=== PATIENT | female | born 1970 | race Hispanic/Latino ===

== ENCOUNTER 2019-03-04 00:59 | Observation (INO) | payer SELFPAY ==
[2019-03-04] MEDS ORDERED: LEVALBUTEROL 1.25 MG/3 ML NEB ONE ×2 (01:37→02:04)
[2019-03-04 02:28] LABS: Absolute Lymphocytes (CBC) 2.2 K/uL (0.7-4.9); Basophils % 0.3 % (0-1.3); Hematocrit 37.3 % (36.0-45.0); Lymphocytes % 42.1 % (15.3-44.8); MPV 8.6 fL (7.6-11.3); RBC Red Blood Cell Count 5.03 M/uL (3.86-4.86)
[2019-03-04 02:31] LABS: Protime INR 0.91
[2019-03-04 02:43] LABS: BUN Blood Urea Nitrogen 11 mg/dL (7-18); Bicarbonate 24 mmol/L (21-32); Glucose Level 101 mg/dL (74-106); NT PRO-BNP 176 pg/mL (<125); Potassium 3.5 mmol/L (3.5-5.1); Sodium Level 143 mmol/L (136-145); Troponin (Emerg Dept Use Only) < 0.02 ng/mL (0.0-0.045)
[2019-03-04] MEDS ORDERED: MORPHINE 4 MG/ML SYR ONE (04:40)
--- NOTE | 2019-03-04 05:06 | EDPHYS ---
Physician Documentation [facility] Name: Danita Sanchez Age: 49 yrs Sex: Female : 1970 Arrival Date: 03/04/2019 Time: 01:13 Bed 7 Private MD: ED Physician Thor Friedman HPI: 03/04 01:34 This 49 yrs old Female presents to ER via Ambulatory with complaints of Cough. rn 01:34 The patient or guardian reports cough, difficulty breathing. Onset: The rn symptoms/episode began/occurred 30 minute(s) ago. Severity of symptoms: At their worst the symptoms were moderate, in the emergency department the symptoms have improved. Modifying factors: The symptoms are alleviated by nothing, the symptoms are aggravated by nothing. The patient has experienced a previous episode. The patient has not recently seen a physician. 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 - Social history:: Smoking status: Patient/guardian denies using tobacco. - Ebola Screening: : No symptoms or risks identified at this time. - Family history:: not pertinent. - Hospitalizations: : No recent hospitalization is reported. ROS: 01:34 Constitutional: Negative for fever, chills, and weight loss, Eyes: Negative for injury, rn pain, redness, and discharge, Neck: Negative for injury, pain, and swelling, Cardiovascular: Negative for chest pain, palpitations, + peripheral edema Respiratory: Negative for pleuritic chest pain, Abdomen/GI: Negative for abdominal pain, nausea, vomiting, diarrhea, and constipation, MS/Extremity: Negative for injury and deformity, Skin: Negative for injury, rash, and discoloration, Neuro: Negative for headache, weakness, numbness, tingling, and seizure. Exam: 01:34 Constitutional: This is a well developed, well nourished patient who is awake, alert, rn + moderate resp distress Head/Face: Normocephalic, atraumatic. Eyes: Pupils equal round and reactive to light, extra-ocular motions intact. Lids and lashes normal. Conjunctiva and sclera are non-icteric and not injected. Cornea within normal limits. Periorbital areas with no swelling, redness, or edema. ENT: No oral trauma or swelling, no stridor Cardiovascular: Tachycardic, regular Respiratory: + moderate tachypnea with diffuse exp wheezing and diminished at bases. Abdomen/GI: soft, non-tender MS/ Extremity: Pulses equal, no cyanosis. Neurovascular intact. Full, normal range of motion. Equal circumference. 1+ non-pitting edema bilateral lower ext Neuro: Awake and alert, GCS 15, oriented to person, place, time, and situation. Cranial nerves II-XII grossly intact. Motor strength 5/5 in all extremities. Sensory grossly intact. Cerebellar exam normal. Vital Signs: 01:24 BP 162 / 90; Pulse 116; Resp 22 S; Temp 98.1(O); Pulse Ox 96% on R/A; Weight 81.65 kg bb (R); Height 5 ft. 3 in. (160.02 cm) (R); Pain 0/10; 02:58 BP 138 / 79; Pulse 112; Resp 20; Temp 98; Pulse Ox 99% ; rr5 04:00 BP 141 / 70; Pulse 115; Resp 18; Pulse Ox 98% on R/A; rr5 04:47 BP 135 / 70; Pulse 107; Resp 19; Pulse Ox 98% ; Pain 7/10; rr5 06:00 BP 131 / 83; Pulse 89; Resp 18; Pulse Ox 99% ; rr5 08:09 BP 134 / 65; Pulse 109; Resp 18; Pulse Ox 98% on R/A; tw2 01:24 Body Mass Index 31.89 (81.65 kg, 160.02 cm) bb MDM: 01:27 Patient medically screened. rn 04:54 Differential Diagnosis: Bronchitis Upper Respiratory Infection Viral Syndrome rn Pneumonia. Data reviewed: vital signs, nurses notes, lab test result(s), EKG, radiologic studies, CT scan, plain films, and as a result, I will admit patient. Counseling: I had a detailed discussion with the patient and/or guardian regarding: the historical points, exam findings, and any diagnostic results supporting the discharge/admit diagnosis, lab results, radiology results, the need for further work-up and treatment in the hospital. Response to treatment: the patient's symptoms have mildly improved after treatment, and as a result, I will admit patient. Admission orders: after a detailed discussion of the patient's condition and case, the admit orders are written by me. ED course: Pt with improvement after breathing treaments, CT neg for PE. Shows possible pneumonia/alveolitis/pulmonary edema. Still complaint of pain and sob. Tachypnea improving. Will admit to Dr. Garcia for further care. . 03/04 01:33 Order name: Blood Culture Adult (2) rn 03/04 01:33 Order name: BMP rn 03/04 01:33 Order name: CBC with Diff rn 03/04 01:33 Order name: D-Dimer rn 03/04 01:33 Order name: NT PRO-BNP rn 03/04 01:33 Order name: PT-INR rn 03/04 01:33 Order name: Ptt, Activated rn 03/04 01:33 Order name: Troponin (emerg Dept Use Only) rn 03/04 03:05 Order name: CBC with Automated Diff; Complete Time: 04:36 EDMS 03/04 03:05 Order name: Protime (+INR); Complete Time: 04:36 EDMS 03/04 03:05 Order name: PTT, Activated Partial Thromb; Complete Time: 04:36 EDMS 03/04 03:05 Order name: Basic Metabolic Panel; Complete Time: 04:36 EDMS 03/04 03:05 Order name: Troponin (Emerg Dept Use Only); Complete Time: 04:36 EDMS 03/04 03:05 Order name: NT PRO-BNP; Complete Time: 04:36 EDMS 03/04 01:33 Order name: IV Start; Complete Time: 01:40 rn 03/04 01:33 Order name: XRAY CXR (1 view) rn 03/04 01:33 Order name: EKG; Complete Time: 01:36 rn 03/04 01:33 Order name: Cardiac monitoring; Complete Time: 01:40 rn 03/04 01:33 Order name: EKG - Nurse/Tech; Complete Time: 01:40 rn 03/04 01:33 Order name: Labs collected and sent; Complete Time: 01:40 rn 03/04 01:33 Order name: O2 Per Protocol; Complete Time: :40 rn 03/04 01:59 Order name: CT Chest For PE Angio rn 03/04 08:16 Order name: Procalcitonin EDNV 03/04 10:39 Order name: Basic Metabolic Panel EDNV 03/04 10:39 Order name: Magnesium EDNV 03/04 11:52 Order name: RAD EDNV 03/04 01:33 Order name: O2 Sat Monitoring; Complete Time: 01:40 rn Administered Medications: 01:40 Drug: Xopenex 1.25 mg Route: Inhalation; rr5 02:40 Follow up: Response: No adverse reaction rr5 02:10 Drug: Xopenex 1.25 mg Route: Inhalation; tl1 04:40 Drug: morphine 4 mg {Note: rass 0 .} Route: IVP; Site: right antecubital; rr5 05:40 Follow up: Response: No adverse reaction; RASS: Alert and Calm (0) rr5 05:25 Drug: LevaQUIN 500 mg Volume: 100 ml; Route: IVPB; Infused Over: 60 mins; Site: right rr5 antecubital; 06:20 Follow up: Response: No adverse reaction; IV Status: Completed infusion; IV Intake: rr5 100ml Disposition: 03/04/19 05:05 Hospitalization ordered by Juancho Garcia for Inpatient Admission. Preliminary diagnosis are Dyspnea, unspecified, Hemoptysis, Pneumonitis. - Bed requested for Telemetry/MedSurg (Inpatient). - Status is Inpatient Admission. sg - Condition is Stable. - Problem is new. - Symptoms have improved. UTI on Admission? No Signatures: Dispatcher [employer] [facility] Angelina Lakhani RN RN mw Gay, Steven, RN RN sg Awilda Britt RN RN bb Nieto, Roman, MD MD rn Lasagna, Tonya, RN RN tl1 Sherley Everett Raymond RN RN rr5 Corrections: (The following items were deleted from the chart) 06:07 05:05 Hospitalization Ordered by Juancho Garcia MD for Inpatient Admission. Preliminary diagnosis is Dyspnea, unspecified; Hemoptysis; Pneumonitis. Bed requested for Telemetry/MedSurg (Inpatient). Status is Inpatient Admission. Condition is Stable. Problem is new. Symptoms have improved. UTI on Admission? No. rn 13:23 06:07 03/04/2019 05:05 Hospitalization Ordered by Juancho Garcia MD for Inpatient eb Admission. Preliminary diagnosis is Dyspnea, unspecified; Hemoptysis; Pneumonitis. Bed requested for [facility] ER HOLD. Status is Inpatient Admission. Condition is Stable. Problem is new. Symptoms have improved. UTI on Admission? No. mw 14:11 13:23 03/04/2019 05:05 Hospitalization Ordered by Juancho Garcia MD for Inpatient eb Admission. Preliminary diagnosis is Dyspnea, unspecified; Hemoptysis; Pneumonitis. Bed requested for Telemetry/MedSurg (Inpatient). Status is Inpatient Admission. Condition is Stable. Problem is new. Symptoms have improved. UTI on Admission? No. eb 14:14 14:11 03/04/2019 05:05 Hospitalization Ordered by Juancho Garcia MD for Inpatient sg Admission. Preliminary diagnosis is Dyspnea, unspecified; Hemoptysis; Pneumonitis. Bed requested for Telemetry/MedSurg (Inpatient). Status is Inpatient Admission. Condition is Stable. Problem is new. Symptoms have improved. UTI on Admission? No. eb
--- NOTE | 2019-03-04 05:06 | ER ---
Nurse's Notes [facility] Name: Danita Sanchez Age: 49 yrs Sex: Female : 1970 Arrival Date: 03/04/2019 Time: 01:13 Bed 7 Private MD: Diagnosis: Dyspnea, unspecified;Hemoptysis;Pneumonitis Presentation: 03/04 01:21 Presenting complaint: Patient states: she started having difficulty breathing and bb coughing up blood approx 30 mins ago had similar symptoms in the past and was told she had fluid on her lungs. Transition of care: patient was not received from another setting of care. Onset of symptoms was March 04, 2019. Risk Assessment: Do you want to hurt yourself or someone else? Patient reports no desire to harm self or others. Initial Sepsis Screen: Does the patient meet any 2 criteria? RR > 20 per min. HR > 90 bpm. Yes Does the patient have a suspected source of infection? Yes: Productive cough/pneumonia. Care prior to arrival: None. 01:21 Method Of Arrival: Ambulatory bb 01:21 Acuity: DAYANNA 2 bb 01:21 Initial Sepsis Screen: If YES to both, name of provider notified: Thor Friedman MD. 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 - Social history:: Smoking status: Patient/guardian denies using tobacco. - Ebola Screening: : No symptoms or risks identified at this time. - Family history:: not pertinent. - Hospitalizations: : No recent hospitalization is reported. Screenin:25 Abuse screen: Denies threats or abuse. Denies injuries from another. Nutritional rr5 screening: No deficits noted. Tuberculosis screening: No symptoms or risk factors identified. Fall Risk IV access (20 points). Total Yu Fall Scale indicates No Risk (0-24 pts). Assessment: 01:21 General: Appears in no apparent distress. uncomfortable, Behavior is calm, cooperative, rr5 appropriate for age. 01:21 Pain: Denies pain. Neuro: Level of Consciousness is awake, alert, obeys commands, rr5 Oriented to person, place, time, situation, Appropriate for age. Cardiovascular: Capillary refill < 3 seconds Patient's skin is warm and dry. Respiratory: Reports cough that is with blood Airway is patent Respiratory effort is even, unlabored, Respiratory pattern is regular, symmetrical, tachypnea Breath sounds with wheezes. GI: No signs and/or symptoms were reported involving the gastrointestinal system. : No signs and/or symptoms were reported regarding the genitourinary system. EENT: No signs and/or symptoms were reported regarding the EENT system. Derm: Skin is intact, Skin is pink, warm \T\ dry. Musculoskeletal: Circulation, motion, and sensation intact. Capillary refill < 3 seconds. 02:10 Reassessment: Patient appears in no apparent distress at this time. Patient and/or rr5 family updated on plan of care and expected duration. Pain level reassessed. Patient is alert, oriented x 3, equal unlabored respirations, skin warm/dry/pink. patient verbalized i feel much better after breathing treatment. Patient states feeling better. Patient states symptoms have improved. Respiratory: Airway is patent Respiratory effort is even, unlabored, Respiratory pattern is regular, symmetrical. 03:00 Reassessment: Patient appears in no apparent distress at this time. Patient is alert, rr5 oriented x 3, equal unlabored respirations, skin warm/dry/pink. awaiting for results. Patient states feeling better. Patient states symptoms have improved. 04:05 Reassessment: Patient appears in no apparent distress at this time. Patient and/or rr5 family updated on plan of care and expected duration. Pain level reassessed. Patient is alert, oriented x 3, equal unlabored respirations, skin warm/dry/pink. came back from CT scan. 2 nd set of blood culture extracted. Patient states feeling better. Patient states symptoms have improved. 04:30 Reassessment: Patient appears in no apparent distress at this time. complaining of back rr5 and abdominal pain, pain score 7/10. ED provider aware with order made and carried out. 05:00 Reassessment: Patient appears in no apparent distress at this time. Patient is alert, rr5 oriented x 3, equal unlabored respirations, skin warm/dry/pink. reassessment done by ED provider advised admission and agreed for the plan of care. Patient states feeling better. Patient states symptoms have improved. 06:18 Reassessment: Patient appears in no apparent distress at this time. Patient and/or rr5 family updated on plan of care and expected duration. Pain level reassessed. Patient is alert, oriented x 3, equal unlabored respirations, skin warm/dry/pink. dr. wu at bedside examining the patient. 07:10 Reassessment: Patient appears in no apparent distress at this time. Patient and/or tw2 family updated on plan of care and expected duration. Pain level reassessed. Patient is alert, oriented x 3, equal unlabored respirations, skin warm/dry/pink. 08:09 Reassessment: Patient appears in no apparent distress at this time. Patient and/or tw2 family updated on plan of care and expected duration. Pain level reassessed. Patient is alert, oriented x 3, equal unlabored respirations, skin warm/dry/pink. Patient states feeling better. Patient states symptoms have improved. Vital Signs: 01:24 BP 162 / 90; Pulse 116; Resp 22 S; Temp 98.1(O); Pulse Ox 96% on R/A; Weight 81.65 kg bb (R); Height 5 ft. 3 in. (160.02 cm) (R); Pain 0/10; 02:58 BP 138 / 79; Pulse 112; Resp 20; Temp 98; Pulse Ox 99% ; rr5 04:00 BP 141 / 70; Pulse 115; Resp 18; Pulse Ox 98% on R/A; rr5 04:47 BP 135 / 70; Pulse 107; Resp 19; Pulse Ox 98% ; Pain 7/10; rr5 06:00 BP 131 / 83; Pulse 89; Resp 18; Pulse Ox 99% ; rr5 08:09 BP 134 / 65; Pulse 109; Resp 18; Pulse Ox 98% on R/A; tw2 01:24 Body Mass Index 31.89 (81.65 kg, 160.02 cm) ED Course: 01:13 Patient arrived in ED. cf2 01:23 Triage completed. bb 01:24 Arm band placed on Patient placed in an exam room, on a stretcher, on pulse oximetry. bb Family accompanied patient. 01:24 Patient has correct armband on for positive identification. Placed in gown. Bed in low rr5 position. Call light in reach. Side rails up X2. Pulse ox on. NIBP on. 01:27 Thor Friedman MD is Attending Physician. rn 01:28 Emil De Oliveira, JAIMEE is Primary Nurse. rr5 01:35 Inserted saline lock: 20 gauge in right antecubital area, using aseptic technique. rr5 Blood collected. 01:41 EKG done, by ED staff. lt1 01:41 Initial Neb Treatment Given as ordered Patient was instructed and evaluated on rr5 procedure. 01:46 X-ray completed. Portable x-ray completed in exam room. Patient tolerated procedure kw well. 02:14 Subsequent Neb Treatment Given as ordered Patient was reinforced on procedure Patient rr5 tolerated procedure well without adverse effect. 03:06 First set of blood cultures drawn by me. lt1 05:04 Juancho Wu MD is Hospitalizing Provider. rn 06:18 No provider procedures requiring assistance completed. Patient admitted, IV remains in rr5 place. intact, No redness/swelling at site. 07:05 Initial lab(s) drawn, by me, sent to lab. phosphorus. rr5 07:19 Primary Nurse role handed off by Emil De Oliveira, RN tw2 07:19 Sruthi Blandon, JAIMEE is Primary Nurse. tw2 13:00 Diet: Patient given a regular meal tray. ms Administered Medications: 01:40 Drug: Xopenex 1.25 mg Route: Inhalation; rr5 02:40 Follow up: Response: No adverse reaction rr5 02:10 Drug: Xopenex 1.25 mg Route: Inhalation; tl1 04:40 Drug: morphine 4 mg {Note: rass 0 .} Route: IVP; Site: right antecubital; rr5 05:40 Follow up: Response: No adverse reaction; RASS: Alert and Calm (0) rr5 05:25 Drug: LevaQUIN 500 mg Volume: 100 ml; Route: IVPB; Infused Over: 60 mins; Site: right rr5 antecubital; 06:20 Follow up: Response: No adverse reaction; IV Status: Completed infusion; IV Intake: rr5 100ml Intake: 06:20 IV: 100ml; Total: 100ml. rr5 Outcome: 05:05 Decision to Hospitalize by Provider. rn 07:06 Condition: stable rr5 07:06 Instructed on the need for admit. 08:09 Admitted to ER Hold. Please see [facility] for further documentation. tw2 14:14 Patient left the ED. sg Signatures: Prudencio Nelson, RN RN Awilda Flores RN RN Danielle Singleton ms, Roman, MD MD rn Whitley, Kimberlee kw Lasagna, Tonya, RN RN tl1 Sruthi Blandon RN RN tw2 Emil De Oliveira RN RN rr5 Rafaela Nolan 1 Symone Rodas cf2 Corrections: (The following items were deleted from the chart) 01:23 01:21 Initial Sepsis Screen: Does the patient meet any 2 criteria? No. Patient's bb initial sepsis screen is negative. Does the patient have a suspected source of infection? No. Patient's initial sepsis screen is negative. bb 08:10 07:06 Admitted to ER Hold. Please see [facility] for further documentation. rr5 tw2
[2019-03-04] MEDS ORDERED: Levofloxacin500mg IV 500 MG/100 ML BAG IV ONE (05:18)
[2019-03-04] MEDS ORDERED: ONDANSETRON 4 MG/2 ML VIAL IV PRN (05:56)
[2019-03-04] MEDS ORDERED: ACETAMINOPHEN 500 MG TAB PO PRN (05:56)
[2019-03-04] MEDS: NA CHLORIDE 0.9% 1,000 ML IV SCH ×2 (06:00→16:41)
[2019-03-04] MEDS: Levofloxacin500mg IV 500 MG/100 ML BAG IV SCH (06:00)
[2019-03-04] MEDS ORDERED: NA CHLORIDE 0.9% 1,000 ML ONE (06:52)
[2019-03-04] MEDS ORDERED: ALBUTEROL 2.5 MG/3 ML NEB SOL ONE ×2 (07:36→13:33)
[2019-03-04] MEDS: IPRATROPIUM BROM 0.5MG/2.5ML NEB SCH ×3 (07:36→20:00)
[2019-03-04] MEDS: ALBUTEROL 2.5 MG/3 ML NEB SOL NEB SCH ×3 (07:36→20:00)
[2019-03-04] MEDS ORDERED: IPRATROPIUM BROM 0.5MG/2.5ML ONE ×2 (07:36→13:33)
[2019-03-04 08:35] VITALS: BMI 31.8
[2019-03-04] MEDS: HYDROCORTISONE SUC 100 MG INJ IV SCH ×2 (09:00→22:13)
[2019-03-04] MEDS ORDERED: ENOXAPARIN 40 MG/0.4 ML SQ ONE (09:47)
[2019-03-04] MEDS ORDERED: POTASSIUM CL SA 10 MEQ TAB PO ONE ×3 (09:47→21:00)
[2019-03-04] MEDS ORDERED: HYDROCORTISONE SUC 100 MG INJ ONE (09:47)
[2019-03-04] MEDS ORDERED: WATER FOR INJ,STERILE 10 ML ONE (09:48)
[2019-03-04] MEDS: ENOXAPARIN 40 MG/0.4 ML SQ SCH (09:55)
[2019-03-04 10:38] LABS: BUN Blood Urea Nitrogen 8 mg/dL (7-18); Bicarbonate 24 mmol/L (21-32); Glucose Level 167 mg/dL (74-106); Potassium 3.4 mmol/L (3.5-5.1); Sodium Level 143 mmol/L (136-145)
--- NOTE | 2019-03-04 11:50 | RAD REPORT ---
EXAM DESCRIPTION: RAD - Chest Single View - 03/04/2019 1:48 am CLINICAL HISTORY: hemoptysis;Cough Chest pain. COMPARISON: Chest Single View dated 06/04/2016 FINDINGS: Portable technique limits examination quality. Mild interstitial pulmonary edema suspected. The heart is upper limit of normal in size. No displaced fractures.
[2019-03-04 14:37] VITALS: O2SAT 98
--- NOTE | 2019-03-05 01:33 | P.HP ---
Certification for Inpatient Patient admitted to: Inpatient With expected LOS: >2 Midnights Patient will require the following post-hospital care: None Practitioner: I am a practitioner with admitting privileges, knowledge of patient current condition, hospital course, and medical plan of care. Services: Services provided to patient in accordance with Admission requirements found in Title 42 Section 412.3 of the Code of Federal Regulations Patient History Date of Service: 03/04/19 Reason for admission: Hemoptysis; fever; shortness of breath History of Present Illness: Patient is a 49-year-old female came to the hospital with fever, shakes, and chills. Patient was short of breath as well. Patient was not able to catch her breath lower brought her to the emergency room. In the ER patient given steroids and neb treatments. Patient started improving quickly. Currently patient is feeling much better. Patient has no new complaints. Patient be admitted to the hospital for further evaluation Allergies Sulfa (Sulfonamide Antibiotics) Allergy (Verified 03/04/19 06:43) Rash Home Medications: NK [No Home Meds] 03/04/19 - Past Medical/Surgical History -: hyperthyroidism -: - Family History Father Family History: Reviewed- Non-Contributory - Social History Smoking Status: Never smoker Review of Systems 10-point ROS is otherwise unremarkable Physical Examination - Vital Signs Temperature: 97.2 F Blood Pressure: 130/61 Pulse: 91 Respirations: 18 Pulse Ox (%): 97 - Physical Exam General: Alert, In no apparent distress, Oriented x3 HEENT: Atraumatic, PERRLA, Mucous membr. moist/pink, EOMI, Sclerae nonicteric Neck: Supple, 2+ carotid pulse no bruit, No LAD, Without JVD or thyroid abnormality Respiratory: Clear to auscultation bilaterally, Normal air movement Cardiovascular: Regular rate/rhythm, Normal S1 S2, No murmurs Gastrointestinal: Normal bowel sounds, Soft and benign, Non-distended, No tenderness Musculoskeletal: No clubbing, No swelling, No tenderness Integumentary: No rashes Neurological: Normal gait, Normal speech, Normal strength at 5/5 x4 extr, Normal tone, Sensation intact, Cranial nerves 3-12 intact, Normal affect Lymphatics: No axilla or inguinal lymphadenopathy Urinary: Dialysis catheter - Studies Laboratory Data (last 24 hrs) 03/04/19 01:35: PT 10.8, INR 0.91, APTT 28.3 03/04/19 01:35: WBC 5.2, Hgb 12.2, Hct 37.3, Plt Count 203 03/04/19 01:35: Sodium 143, Potassium 3.5, BUN 11, Creatinine 0.39 L, Glucose 101 Assessment & Plan - Problems (Diagnosis) (1) Pneumonia, interstitial Current Visit: Yes Status: Acute (2) Fever Current Visit: Yes Status: Acute (3) Dyspnea Current Visit: Yes Status: Acute - Plan Plan: 1. IV hydration 2. IV antibiotics 3. Nebs Q 6 4. IV steroids 5. May need echocardiogram 6. CT scan of the chest results are pending 7. GI and DVT prophylaxis Discharge Plan: Home Plan to discharge in: Greater than 2 days - Advance Directives Does patient have a Living Will: No Does patient have a Durable POA for Healthcare: No - Code Status/Comfort Care Code Status Assessed: Yes Code Status: Full Code Critical Care: No Time Spent Managing PTS Care (In Minutes): 45
[2019-03-05] MEDS: ALBUTEROL 2.5 MG/3 ML NEB SOL NEB SCH ×3 (02:00→13:20)
[2019-03-05] MEDS: IPRATROPIUM BROM 0.5MG/2.5ML NEB SCH ×3 (02:00→13:20)
[2019-03-05] MEDS: Levofloxacin500mg IV 500 MG/100 ML BAG IV SCH (05:15)
[2019-03-05 06:30] LABS: Absolute Lymphocytes (CBC) 1.5 K/uL (0.7-4.9); Basophils % 0.5 % (0-1.3); Hematocrit 28.2 % (36.0-45.0); Lymphocytes % 50.5 % (15.3-44.8); MPV 8.3 fL (7.6-11.3); RBC Red Blood Cell Count 3.84 M/uL (3.86-4.86)
[2019-03-05 06:36] LABS: ALT/SGPT 18 U/L (12-78); AST/SGOT 9 U/L (15-37); Albumin 2.7 g/dL (3.4-5.0); Alkaline Phosphatase 89 U/L (45-117); BUN Blood Urea Nitrogen 6 mg/dL (7-18); Bicarbonate 22 mmol/L (21-32); Bilirubin Total 0.4 mg/dL (0.2-1.0); Glucose Level 114 mg/dL (74-106); HDL Cholesterol 32 mg/dL (40-60); LDL Cholesterol, Calculated 35 (<130); Magnesium 1.9 mg/dL (1.8-2.4); Potassium 3.8 mmol/L (3.5-5.1); Protein, Total 6.1 g/dL (6.4-8.2); Sodium Level 146 mmol/L (136-145)
[2019-03-05] MEDS: NA CHLORIDE 0.9% 1,000 ML IV SCH (07:50)
[2019-03-05] MEDS: HYDROCORTISONE SUC 100 MG INJ IV SCH (07:50)
[2019-03-05] MEDS: ENOXAPARIN 40 MG/0.4 ML SQ SCH (07:51)
[2019-03-05 08:23] LABS: Blood Morphology Comment NOT SEEN (NOT SEEN); Platelet Estimate ADEQ
--- NOTE | 2019-03-05 11:36 | EKG ---
Test Date: 2019-03-04 Test Time: 01:36:11 Burglary Investigator: GENE MEASUREMENT RESULTS: Intervals: Rate: 115 MA: 156 QRSD: 106 QT: 330 QTc: 456 Ringling: P: 47 MA: 156 QRS: 65 T: 64 INTERPRETIVE STATEMENTS: Sinus tachycardia Possible Left atrial enlargement Cannot rule out Anterior infarct, age undetermined Abnormal ECG Compared to ECG 06/04/2016 19:24:14 Myocardial infarct finding now present Right-axis deviation no longer present ST (T wave) deviation no longer present Electronically Signed On 03-05-19 11:31:33 CDT by Fidel Viveros
--- NOTE | 2019-03-05 12:03 | RAD REPORT ---
EXAM DESCRIPTION: CT Angiography Chest With Intravenous Contrast CLINICAL HISTORY: The patient is 49 years old and is Female; Cough;Dyspnea TECHNIQUE: Axial computed tomographic angiography images of the chest with intravenous contrast. S agittal and coronal reformatted images were created and reviewed. This CT exam was performed using one or more of the following dose reduction techniques: automated exposure control, adjustment of t he mA and/or kV according to patient size, and/or use of iterative reconstruction technique. MIP reconstructed images were created and reviewed. COMPARISON: No relevant prior studies available. FINDINGS: PULMONARY ARTERIES: There are no obvious filling defects identified within the pulmonary arteries to suggest pulmonary embolism. AORTA: No acute findings. No thoracic aortic aneurysm. LUNGS: Mild nonspecific scattered groundglass opacities are present throughout the lungs. PLEURAL SPACE: Unremarkable. No significant effusion. No pneumothorax. HEART: Unremarkable. No cardiomegaly. No significant pericardial effusion. No evidence of RV dysfunction. BONES/JOINTS: No acute fracture. No dislocation. SOFT TISSUES: Unremarkable. LYMPH NODES: Unremarkable. No enlarged lymph nodes. IMPRESSION: 1. No evidence of pulmonary embolism. 2. Mild scattered groundglass opacities. Groundglass opacification is a nonspecific finding and not necessarily indicative of significant pathology. However, in the appropriate clinical setting, pulmo nary edema, pneumonia, or various causes of alveolitis should be considered. Electronically signed by: Cassy Polanco MD 03/04/2019 4:40 AM CDT Due to temporary technical issues with the PACS/Fluency reporting system, reports are being signed by the in house radiologist as a courtesy to ensure prompt reporting. The interpreting radiologist is f ully responsible for the content of the report.
[2019-03-05 13:43] VITALS: BP 147/69; TEMP 97.9
--- NOTE | 2019-03-05 14:49 | P.SSS ---
Patient History Date of Service: 03/05/19 Reason for admission: Hemoptysis; fever; shortness of breath History of Present Illness: See HPI Allergies Sulfa (Sulfonamide Antibiotics) Allergy (Verified 03/04/19 06:43) Rash Home Medications: Levofloxacin [Levaquin] 500 mg PO DAILY #7 tablet 03/05/19 Prednisone [Sterapred Ds] 10 mg PO BID #10 tab.ds.pk 03/05/19 - Past Medical/Surgical History -: hyperthyroidism -: - Social History Smoking Status: Never smoker Review of Systems 10-point ROS is otherwise unremarkable Physical Examination - Vital Signs Temperature: 97.9 F Blood Pressure: 147/69 Pulse: 106 Respirations: 20 Pulse Ox (%): 97 - Physical Exam General: Alert, In no apparent distress HEENT: Atraumatic, PERRLA, Mucous membr. moist/pink, EOMI, Sclerae nonicteric Neck: Supple, 2+ carotid pulse no bruit, No LAD, Without JVD or thyroid abnormality Respiratory: Clear to auscultation bilaterally, Normal air movement Cardiovascular: Regular rate/rhythm, Normal S1 S2 Gastrointestinal: Normal bowel sounds, No tenderness Musculoskeletal: No tenderness Integumentary: No rashes Neurological: Normal gait, Normal speech, Normal strength at 5/5 x4 extr, Normal tone, Normal affect Lymphatics: No axilla or inguinal lymphadenopathy - Diagnosis (Problem(s)) (1) Dyspnea Current Visit: Yes Status: Resolved Qualifiers: Dyspnea type: shortness of breath Qualified Code(s): R06.02 - Shortness of breath; R06.00 - Dyspnea, unspecified; R06.01 - Orthopnea (2) Fever Current Visit: Yes Status: Acute Qualifiers: Fever type: unspecified Qualified Code(s): R50.9 - Fever, unspecified Treatment Summary: Overall during the hospital stay patient remained stable Patient was initially admitted to the hospital for dyspnea and fever. Was found to have chest x-ray which was consistent with pulmonary edema which was consistent with interstitial pneumonia versus fluid overload. Patient was started on IV antibiotics here in the hospital. Patient also had neb treatments in the ER. Patient had marked improvement in her symptoms. Patient initially had a concern for TB given the past history of PPD that was positive head hemoptysis in the ER. After further questioning however it was found the patient was very low risk for TB x-ray was negative for any acute abnormality. Patient did not have any chills or night sweats or any other associated symptoms are no other exposures were noted. Patient also had BCG vaccine when she was [place] which could give false positive PPD testing. Patient then was discharged home under stable condition. Initially sputum cultures were ordered however patient was not producing any cough or sputum and thus was discharged home under stable condition was asked to follow up with primary care provider in about 1-2 days post discharge. - Disposition Disposition: ROUTINE DISCHARGE Condition: FAIR Diet: Regular Activity: Ad mario
--- NOTE | 2019-03-05 15:19 | RAD REPORT ---
EXAM DESCRIPTION: RAD - Chest Single View - 03/05/2019 2:56 pm CLINICAL HISTORY: sob Chest pain. COMPARISON: Chest Single View dated 03/04/2019; Chest Single View dated 06/04/2016; Chest For [place] o dated 03/04/2019 FINDINGS: Portable technique limits examination quality. No significant change is seen in the mild interstitial prominence throughout the lungs. The heart is mildly prominent in size. No displaced fractures. IMPRESSION: Stable chest.
== END 2019-03-05 16:50 | disposition home or self-care (01) ==
LOC: ER 00:59 → INTOOBSV 06:25 → ERHOLD 06:25 → 2ND 14:07
PROVIDERS: ADMIT Hospitalist; ATTEND Family Medicine
DX: J84.9 Interstitial pulmonary disease, unspecified (principal)
CPT/HCPCS: 36415; 71045; 71275; 80048; 80053; 80061; 83605; 83735; 83880; 84100; 84132; 84145; 84484; 85025; 85610; 85730; 87040; 93005; 94640; 94760; 96365; 96375; 99285; G0378; J1650; J1720; J7030; Q9967